=== PATIENT | female | born 1990 | race Two or more races ===

== ENCOUNTER 2018-11-24 10:23 | Emergency (ER) | payer OTHER ==
[2018-11-24] MEDS ORDERED: IBUPROFEN 600 MG TABLET PO ONE (11:05)
[2018-11-24] MEDS ORDERED: ACETAMINOPHEN 325 MG TABLET PO ONE (11:05)
--- NOTE | 2018-11-24 11:08 | ER Document Report ---
HPI - HPI Time Seen by Provider: 11/24/18 10:35 Pain Level: 3 Context: Patient is a 28-year-old female who presents to the emergency department with a chief complaint of left ankle pain. She was hiking yesterday and stepped in a pothole and internally rotated her foot. She has not been able to walk well on it since then. She has not taken any ibuprofen or Tylenol to help with her pain. She states that the whole ankle hurts. She is generally very active and healthy, as she is personnel. Denies any past medical history. She does not take any medications. - CONSTITUTIONAL Constitutional: DENIES: Fever, Chills - EENT EENT: DENIES: Sore Throat - NEURO Neurology: DENIES: Headache - CARDIOVASCULAR Cardiovascular: DENIES: Chest pain - RESPIRATORY Respiratory: DENIES: Coughing - REPRODUCTIVE Reproductive: DENIES: : - MUSCULOSKELETAL Musculoskeletal: REPORTS: Extremity pain - Left ankle - DERM Skin Color: Normal Skin Problems: None Past Medical History - Social History Smoking Status: Never Smoker Frequency of alcohol use: None Drug Abuse: None Family History: Reviewed & Not Pertinent Patient has suicidal ideation: No Patient has homicidal ideation: No Renal/ Medical History: Denies: Hx Peritoneal Dialysis Vertical Provider Document - CONSTITUTIONAL Agree With Documented VS: Yes Exam Limitations: No Limitations General Appearance: No Apparent Distress - INFECTION CONTROL TRAVEL OUTSIDE OF THE [place] IN LAST 30 DAYS: No - HEENT HEENT: Atraumatic, Normocephalic - NECK Neck: Normal Inspection - RESPIRATORY Respiratory: No Respiratory Distress - CARDIOVASCULAR Cardiovascular: Regular Rate, Regular Rhythm Pulses: Normal: Radial, Posterior tibial, Dorsalis pedis - MUSCULOSKELETAL/EXTREMETIES Musculoskeletal/Extremeties: Tender - Left lateral ankle, Edema - Left lateral ankle, Eccymosis - Left lateral ankle - NEURO Level of Consciousness: Awake, Alert, Appropriate Motor/Sensory: No Motor Deficit, No Sensory Deficit - DERM Integumentary: Warm, Dry Course - Re-evaluation Re-evalutation: 11/24/18 12:02 There is no fracture noted to the patient's left ankle. I suspect patient sprained her ankle. She will be provided an Romario bandage and crutches. I have instructed her on ibuprofen and Tylenol use. She will follow-up with her PCM in regards to this visit. No circulatory compromise noted. She is in agreement with this plan. Verbal discharge instructions were given to the patient. They verbalized understanding. They are stable for discharge. - Vital Signs Vital signs: Temp Pulse Resp BP Pulse Ox 98.5 F 76 118/68 96 11/24/18 10:28 11/24/18 10:28 11/24/18 10:28 11/24/18 10:28 Procedures - Immobilization Left Ankle Pre-Proc Neuro Vasc Exam: Normal Immobilizer type: Romario wrap, Crutches Performed by: PCT Post-Proc Neuro Vasc Exam: Normal, Unchanged from pre-exam Alignment checked and good: Yes Discharge - Discharge Clinical Impression: Ankle sprain Qualifiers: Encounter type: initial encounter Involved ligament of ankle: other ligament Laterality: left Qualified Code(s): S93.492A - Sprain of other ligament of left ankle, initial encounter Condition: Stable Disposition: HOME, SELF-CARE Instructions: Romario Wrap ([facility]), Ice & Elevation ([facility]), Soft Ankle Splint ([facility]), Sprained Ankle ([facility]) Additional Instructions: You were seen today in the emergency department for a sprained ankle. Rest the area, ice it, elevate it, and provide compression with Romario wrap as needed. Follow-up with your primary care provider in regards to this visit. You have been provided crutches. You can take ibuprofen 600 mg and acetaminophen 1000 mg every 6 hours for your pain.
--- NOTE | 2018-11-24 11:29 | RADIOLOGY REPORT (SQ) ---
EXAM DESCRIPTION: ANKLE LEFT COMPLETE COMPLETED DATE/TIME: 11/24/2018 11:15 am REASON FOR STUDY: trauma COMPARISON: None. NUMBER OF VIEWS: Three views left ankle. LIMITATIONS: None. FINDINGS: Fairly pronounced lateral soft tissue swelling. No fracture or worrisome bone lesion. Mo rtise maintained. OTHER: No other significant finding. IMPRESSION: Soft tissue swelling without fracture. TECHNICAL DOCUMENTATION: JOB ID: [id number] Reading location - IP/workstation name: [email or web address]
[2018-11-24] MEDS ORDERED: IBUPROFEN 600 MG TABLET ONE (11:34)
[2018-11-24 12:23] VITALS: BP 107/64
== END 2018-11-24 12:20 | disposition home or self-care (01) ==
LOC: ER 10:23
DX: S93.402A Sprain of unspecified ligament of left ankle, initial encounter (principal); M25.572 Pain in left ankle and joints of left foot; X50.0XXA Overexertion from strenuous movement or load, initial encounter; Y93.01 Activity, walking, marching and hiking
CPT/HCPCS: 99283